=== PATIENT | female | born 1965 | race Caucasian/White ===

== ENCOUNTER 2019-11-12 12:00 | Emergency (ER) | payer SELFPAY ==
[~2019-11-12] VITALS: Ht 162.6 cm; Wt 119.7 kg
--- NOTE | 2019-11-12 12:15 | NUR ---
CAME IN FOR R KNEE PAIN S/P TRIPPED LAST NIGHT. TO ET BED 4, HOOKED TO MONITOR, CHANGED TO HOSP [facility]OWN, PROVIDED WW ARM BLANKET, AWAITING MD AUGUSTINE
--- NOTE | 2019-11-12 12:45 | NUR ---
ALTAGRACIA NEUMANN AT BEDSIDE
[2019-11-12] MEDS ORDERED: KETOROLAC TROMETHAMINE INJ 60 MG/2 ML VIAL IM ONE (13:00)
[2019-11-12] MEDS ORDERED: KETOROLAC TROMETHAMINE INJ 30 MG/ML VIAL ONE (13:01)
--- NOTE | 2019-11-12 14:12 | NUR ---
Patient discharged to home in stable condition. Written and verbal after care instructions given. Patient verbalizes understanding of instruction.
[2019-11-12 14:20] VITALS: BP 142/89
== END 2019-11-12 14:12 | disposition home or self-care (01) ==
LOC: ER 12:04
DX: M25.561 Pain in right knee (principal); M23.8X1 Other internal derangements of right knee; E66.01 Morbid (severe) obesity due to excess calories; Z68.42 Body mass index [BMI] 45.0-49.9, adult; Z98.890 Other specified postprocedural states; W18.49XA Other slipping, tripping and stumbling without falling, initial encounter; Y93.89 Activity, other specified; Y92.89 Other specified places as the place of occurrence of the external cause; Y99.8 Other external cause status
CPT/HCPCS: 29505; 73564; 96372; 99283; J1885